=== PATIENT | female | born 1960 | race Caucasian/White ===

== ENCOUNTER 2025-04-03 03:48 | Emergency (ER) | payer BC, OTHER ==
[2025-04-03 04:21] LABS: Hematocrit 44.2 % (36.0-47.0); Hemoglobin 14.8 g/dL (12.0-16.0); MDiff Complete? YES; Mean Corpuscular Hemoglobin 31.1 pg (27.0-31.0); Mean Corpuscular Volume 93.1 fl (78.0-98.0); Platelet Count 239 10x3/uL (130-400); Red Blood Cell (RBC) Count 4.74 mill/uL (4.20-5.40); White Blood Cell (WBC) Count 5.8 10x3/uL (4.8-10.8)
[2025-04-03] MEDS ORDERED: Ondansetron PF 4 MG/2 ML Vial ONE (04:33)
[2025-04-03] MEDS ORDERED: HYDROmorphone 0.5 MG/0.5 ML SYRINGE ONE ×2 (04:33→08:10)
[2025-04-03 04:35] LABS: ALT (SGPT) 19 U/L (Less than 34); AST (SGOT) 22 U/L (11-34); Albumin 3.2 g/dL (3.1-4.5); Alkaline Phosphatase 100 U/L (40-110); Anion Gap 17 mmol/L (10-20); BUN (Urea Nitrogen) 13 mg/dL (9.8-20.1); Bilirubin, Total 0.8 mg/dL (0.3-1.2); Calc. Creatinine Clearance 0 mL/min (70-130); Calcium 8.6 mg/dL (7.8-10.44); Carbon Dioxide 20 mmol/L (23-31); Chloride 107 mmol/L (98-107); Globulin 2.6 g/dL (2.4-3.5); Glucose 117 mg/dL (80-115); Potassium 3.5 mmol/L (3.5-5.1); Sodium 140 mmol/L (136-145)
[2025-04-03 06:15] LABS: Bacteria/HPF Rare-Few HPF (None Seen); CAUTI Indications for Culture Pelvic or flank pain; Glucose, Urine (Dipstick) Negative (Negative); Leukocyte Trace (Negative); Protein, Urine (Dipstick) Negative (Neg-Trace); RBC/HPF 0-3 HPF (0-3); Specific Gravity, Urine 1.015 (1.005-1.030); WBC/HPF 0-3 HPF (0-3)
[2025-04-03 06:16] LABS: Urine Culture Reflex No No
[2025-04-03] MEDS ORDERED: Iopamidol 370 76% 100 ML VIAL ONE (09:00)
== END 2025-04-03 08:58 | disposition short-term general hospital (02) ==
LOC: MADERS 03:48
DX: K56.609 Unspecified intestinal obstruction, unspecified as to partial versus complete obstruction (principal); K46.9 Unspecified abdominal hernia without obstruction or gangrene; I10 Essential (primary) hypertension; K21.9 Gastro-esophageal reflux disease without esophagitis; Z79.899 Other long term (current) drug therapy
CPT/HCPCS: 36415; 74177; 80053; 81001; 83605; 83690; 85025; 87040; 93005; 96361; 96374; 96375; 96376; J1171; J2405; J7120; Q9967